=== PATIENT | male | born 1990 | race Caucasian/White ===

== ENCOUNTER 2020-12-30 09:35 | Outpatient (REF) | payer BC, SELFPAY ==
[2020-12-30 11:21] LABS: MANUAL DIFF FLAG NO
[2020-12-30 11:33] LABS: Basophils Percent Auto 0.6 % (0-2); Eosinophils Absolute Auto 0.2 X10*3/uL (0.0-0.4); Eosinophils Percent Auto 3.2 % (0-4); Hematocrit 44.8 % (42-52); Hemoglobin 15.1 g/dl (14.0-18.0); Imm Gran Abs Auto 0.05 X10*3/uL (0.00-0.03); Imm Gran Pct Auto 0.8 % (0.0-0.4); Lymphocytes Absolute Auto 2.3 X10*3/uL (1.2-4.9); Lymphocytes Percent Auto 34.9 % (20-40); Mean Corpuscular HGB Conc 33.7 g/dl (31.0-36.0); Mean Corpuscular Hemoglobin 28.4 pg (27.0-33.0); Mean Corpuscular Volume 84.4 fL (80-98); Mean Platelet Volume 9.7 fL (9.4-12.4); Monocytes Absolute Auto 0.6 X10*3/uL (0.1-1.2); Monocytes Percent Auto 8.3 % (2-11); Neutrophils Absolute Auto 3.4 X10*3/uL (2.0-8.3); Neutrophils Percent Auto 52.2 % (45-73); Platelet Count 277 X10*3/uL (160-400); Red Blood Count 5.31 X10*6/uL (4.60-5.80); Red Cell Distribution Width 12.1 % (11.0-16.0); White Blood Count 6.6 X10*3/uL (4.8-10.8)
[2020-12-30 12:24] LABS: Alanine Aminotransferase 45 U/L (0-40); Albumin Level 4.6 g/dL (3.5-5.0); Alkaline Phosphatase 58 U/L (39-117); Aspartate Amino Transferase 26 U/L (5-37); Bilirubin Total 0.3 mg/dL (0.0-1.0); Blood Urea Nitrogen 13 mg/dL (9-16); Calcium 9.2 mg/dL (8.4-10.2); Cholesterol 226 mg/dL; Estimated Glomerular Filt Rate > 60; Gamma Glutamyl Transpeptidase 117 U/L (11-51); Glucose Fasting 86 mg/dL (60-99); HDL Cholesterol 81 mg/dL; LDL Cholesterol Calculated 134 mg/dl; Triglycerides 56 mg/dL
[2020-12-30 13:17] LABS: Anion Gap 12 (12-20); Carbon Dioxide 28 mmol/L (22-29); Chloride 107 mmol/L (96-108); Sodium 143 mmol/L (135-145)
== END 2020-12-30 09:36 | disposition home or self-care (01) ==
LOC: HO.MANLDS 09:35
PROVIDERS: PCP Internal Medicine; Visit Provider Physician Assistant
DX: Z00.00 Encounter for general adult medical examination without abnormal findings (principal); Z13.6 Encounter for screening for cardiovascular disorders
CPT/HCPCS: 36415; 80053; 80061; 82977; 85025

== ENCOUNTER 2025-01-16 10:04 | Outpatient (REF) | payer BC, SELFPAY ==
[2025-01-16 13:20] LABS: MANUAL DIFF FLAG NO
[2025-01-16 13:27] LABS: Basophils Absolute Auto 0.1 X10*3/uL (0.0-0.2); Basophils Percent Auto 0.8 % (0-2); Eosinophils Absolute Auto 0.3 X10*3/uL (0.0-0.4); Eosinophils Percent Auto 3.9 % (0-4); Hematocrit 46.2 % (42.0-52.0); Hemoglobin 15.9 g/dl (14.0-18.0); Imm Gran Abs Auto 0.03 X10*3/uL (0.00-0.03); Imm Gran Pct Auto 0.5 % (0.0-0.4); Lymphocytes Percent Auto 31.8 % (20-40); Mean Corpuscular HGB Conc 34.4 g/dl (31.0-36.0); Mean Corpuscular Hemoglobin 28.5 pg (27.0-33.0); Mean Corpuscular Volume 82.9 fL (80.0-98.0); Mean Platelet Volume 10.4 fL (9.4-12.4); Monocytes Absolute Auto 0.6 X10*3/uL (0.1-1.2); Monocytes Percent Auto 9.3 % (2-11); Neutrophils Absolute Auto 3.4 x10*3/uL (2.0-8.3); Neutrophils Percent Auto 53.7 % (45-73); Platelet Count 270 X10*3/uL (160-400); Red Blood Count 5.57 X10*6/uL (4.60-5.80); Red Cell Distribution Width 12.2 % (11.0-16.0); White Blood Count 6.4 X10*3/uL (4.8-10.8)
[2025-01-16 13:40] LABS: Estimated Average Glucose 91 mg/dL; Hemoglobin A1C 119.3891 umol/L; Hemoglobin A1c % 4.8 % (<6.0)
[2025-01-16 14:28] LABS: Alanine Aminotransferase 33 U/L (0-40); Albumin Level 4.6 g/dL (3.5-5.0); Alkaline Phosphatase 61 U/L (39-117); Anion Gap 11 (12-20); Aspartate Amino Transferase 26 U/L (5-37); Bilirubin Total 0.7 mg/dL (0.0-1.0); Blood Urea Nitrogen 8 mg/dL (9-16); Calcium 9.7 mg/dL (8.4-10.2); Carbon Dioxide 27 mmol/L (22-29); Chloride 108 mmol/L (96-108); Cholesterol 193 mg/dL (<200); Estimated Glomerular Filt Rate > 60; Glucose Random 75 mg/dL (60-115); HDL Cholesterol 66 mg/dL (>40); LDL Cholesterol Calculated 112 mg/dL (<100); Potassium 3.7 mmol/L (3.3-5.1); Sodium 142 mmol/L (135-145); Total Protein 7.2 g/dL (6.5-8.0); Triglycerides 78 mg/dL (<150)
[2025-01-21 23:39] LABS: VITAMIN D (1,25 OH) D3 71 pg/mL; Vit D (1,25-Dihydroxy) Total 71 pg/mL (18-72); Vitamin D (1,25 OH) D2 <8 pg/mL
== END 2025-01-16 10:05 | disposition home or self-care (01) ==
LOC: HO.MANLDS 10:04
PROVIDERS: Visit Provider Physician Assistant
DX: Z00.00 Encounter for general adult medical examination without abnormal findings (principal); Z13.6 Encounter for screening for cardiovascular disorders; Z13.1 Encounter for screening for diabetes mellitus
CPT/HCPCS: 36415; 80053; 80061; 82652; 83036; 85025

== ENCOUNTER 2025-05-21 11:23 | Outpatient (REF) | payer BC, SELFPAY ==
--- OUTSIDE RECORDS SUMMARY | 2025-05-21 12:38 | XMS_ITS | Clinical Summary ---
Author Organization [facility] Address [address] [facility] [address] [place] [address] Phone Care Team Providers Care Solar Engineer Name Role Phone Jerman Maya DO Unavailable Pcp, Unknown Primary Care Provider Unavailabl e Allergies No known active allergies Medications bacillus coagulans-inulin 1 billion-250 cell-mg Cap Take 250 mg by mouth daily. Active fluticasone propionate (FLONASE) 50 mcg/actuation nasal spray 1 spray by Nasal route daily. Active Social History Tobacco Use Types Packs/Day Years Used Date Smoking Tobacco: Never Assessed Education Answer Date Recorded Are you interested in more education? Not on osbaldo e 02/18/2023 Are you concerned about learning? Not on file 02/18/2023 No 02/18/2023 No 02/18/2023 Digital Access Answer Date Recorded No 03/18/2023 No 03/18/2023 Reliable internet access at home? Not on file 03/18/2023 Device with a working camera? Not on file Sex and Gender Information Value Date Recorded Sex Assigned at Not on file Legal Sex Male 9:06 PM EDT Gender Identity Not on file Sexual Orientation Not on file Last Filed Vital Signs Vital Sign Reading Time Taken Comments Blood Pressure 136/78 07/15/2022 12:08 PM EDT Pulse 68 07/15/2022 9:41 AM EDT Temperature 36.5 C (97.7 F) 07/15/2022 12:08 PM EDT Respiratory Rate 14 07/15/2022 9:41 AM EDT Oxygen Saturation 96% 07/15/2022 12:08 PM EDT Inhaled Oxygen Concentration - - Weight - - Height - - Body Mass Index - - Plan of Treatment Health Maintenance Due Date Last Done Comments DEPRESSION SCREENING 2001 SMOKING Hx and SMOKELESS TOBACCO SCREENING 2002 HEPATITIS C SCREENING 2007 HIV ONE-TIME SCREENING (18-6 5 YEARS) 2007 Adult Td,Tdap Booster 08/04/2010 08/04/2000 COVID-19 VACCINE ( - 2023-2 5 season) 2024 LIPID PANEL 07/12/2028 07/12/2023, 12/30/2020 HIB VACCINES Completed 07/20/1990 HEPATITIS A VACCINES Aged Out No long er eligible based on patient's age to complete this topic MENINGOCOCCAL VACCINES (ACWY) Aged Out No longer eligible based on patient's age to complete this topic MENINGOCOCCAL VACCINES (B) Aged Out N o longer eligible based on patient's age to complete this topic PNEUMOCOCCAL VACCINES (0-49 years) Aged Out No longer eligible b ased on patient's age to complete this topic Medical Devices Not on file Insurance PPO EPO [facility] [place] [address] [place] [address] [place] [address] [place] [address] [address] [place] [address] PPO EPO [facility] PPO EPO [facility] PPO EPO [facility] PPO EPO [facility] PPO EPO Care Teams Solar Engineer Relationship Specialty Start Date End Date Pcp, Unknown PCP - General 05/21/22 Jerman Maya DO [address] [place] [address] [email or web address] Insurance Assigned Provider 01/28/24 Additional Source Comments The information contained in this document represents components of the legal health record. It is not the complete legal health record.[facility]
--- OUTSIDE RECORDS SUMMARY | 2025-05-21 12:38 | XMS_ITS | Data Portability ---
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 REVIEW OF PRIOR EXTERNAL NOTES/RESULTS, ORDERING OF TEST(S) CATEGORY 2. ASSESSMENT REQUIRING INDEPENDENT HISTORIAN(S) INCLUDE WHO THE HISTORIAN IS AND RELATION TO PT AND WHY PT IS UNABLE TO GIVE COMPLETE HISTORY ELEMENT 3: RISK (LOW) RISK OF COMPLICATIONS AND/OR MORBIDITY OR MORTALITY OF PATIENT MANAGEMENT PROVIDER MUST THOROUGHLY DOCUMENT ALL OF THE ELEMENTS COVERED [email or web address] Not available 09/26/2023 16:05:42 Plan of Treatment Reminders Order Date Submit Date Provider Last Modified By Organization Details Last Modified Time Details Appointments FOLLOW UP 15 2024 10:45A M MCAY العلي Not available Not available Not available ANNUAL EXAM 2025 09:30A MACY LEDEZMA Not available Not available Not available Lab CMP, serum or plasma 2024 025 [facility], [address] [place] [address], [place], [address], 01/17/2025 12:56:14 lipid panel, blood 2024 025 [facility], [address] [place] [address], [address], 01/17/2025 12:56:14 CBC w/ auto diff 2024 025 [facility], [address] [place] [address], [address], 01/16/2025 10:02:06 vitamin D, 25-hydrox y, total, serum 2024 025 [facility], [address] [place] [address], [address], 01/22/2025 12:38:08 hemoglobi n A1c, QN, blood 2024 025 [facility], [address] [place] [address], [address], 01/16/2025 10:02:06 CMP, serum or plasma 2023 024 [facility], [address] [place] [address], [place], [address], 01/13/2024 09:54:53 lipid panel, blood 2023 024 [facility], [address] [place] [address], [address], 01/13/2024 09:54:54 CBC w/ auto diff 2023 024 [facility], [address] [place] [address], [address], 01/13/2024 09:54:54 Referral physical therapist referral 2022 023 [facility], [facility] Breanna Fernandes, [place], [address], 10/03/2023 09:38:27 Procedures None recorded. Surgeries None recorded. Imaging US, scrotum 2023 024 [facility], [address] [place], [address], 01/02/2024 08:13:07 XR, cervical spine, 2 or 3 view 2022 023 [place], [address], 10/10/2023 08:44:46 Medication Orders bupropion HCl XL 150 mg 24 hr tablet, extended release 2024 025 [id number], [address] [place], [address], 05/01/2025 15:51:11 Patient TargetsNo targets recorded. Patient InstructionsNo instructions recorded. Reason for Referral Physical Therapist Referral for Cervico-occipital neuralgia Referring Physician: Jerman Maya, Internal Medicine, Encounter Date: 09/26/2023 Results Created Date Observation Date Name Description Value Unit Range Abnormal Flag Note LastModifiedBy Organization Detail LastModifiedTime 01/09/20 24 01/09/2024 US, yarelis No observ ation record ed. 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 Problems Name Problem SNOMED Code Status Onset Date Resolution Date Notes Provider Name and Address Organization Details Recorded Time Metabolic dysfuncti on-associ ated steatohep atitis 321660246 Active 2021 Jerman Maya, DO [address] [place] [address], [address], [place] [facility] 2 15:39:10 Right Achilles tendiniti s 699247066284 102 Active 2022 MACY العلي [address] [place] [address], [address], [facility] 3 13:41:53 Raynaud's phenomeno n 214127266 Active 2022 MACY العلي [address] [place], [address], [facility] 3 13:53:07 Temporal headache 22177804 Active 2022 Jerman Maya DO [address] [place], [address], [facility] 3 12:41:52 Scrotal mass 58301165 Active 2023 MACY العلي [address] [place], [address], [facility] 4 14:00:41 Panic attack 998607015 Active 2024 MACY العلي [address] [place] [address], [address], [facility] 5 15:45:52 Generaliz ed anxiety disorder 23900082 Active 2024 MACY العلي [address] [place] [address], [address], [facility] 5 15:46:46 Problem Notes None recorded. Medical Equipment None Reported. Allergies No known drug allergies Medications Name Sig Start Date Stop Date Status Note LastModified by Organization Details LastModified Time acetamino phen 325 mg tablet TAKE 2 TABLETS BY MOUTH 4 TIMES A DAY FOR 1 WEEK NEEDED FOR PAIN 01/12 completed Not Available Not Available Not Available benzonata te 200 mg capsule TAKE 1 CAPSULE 3 TIMES A DAY BY ORAL ROUTE NEEDED FOR 10 DAYS, FOR COUGH. 01/16 completed Not Available Not Available Not Available sumatript an 50 mg tablet TAKE 1 TABLET BY MOUTH NEEDED 01/12 completed Not Available Not Available Not Available Zyrtec 10 mg tablet Take 1 tablet every day by oral route. 01/01 completed Not Available Not Available Not Available lidocaine 5 % topical patch APPLY 1 PATCH DAILY 12 HOURS ON 12 HOURS OFF NEEDED FOR PAIN FOR 13 DAYS 01/12 completed Not Available Not Available Not Available ibuprofen 600 mg tablet TAKE 1 TABLET BY MOUTH FOUR TIMES A DAY FOR 1 WEEK NEEDED FOR PAIN 01/12 completed Not Available Not Available Not Available amoxicill in 875 mg-potass ium clavulana te 125 mg tablet TAKE 1 TABLET BY MOUTH EVERY 12 HOURS FOR 10 DAYS, FOR SINUS INFECTIO N. 01/16 completed Not Available Not Available Not Available neomycin 3.5 mg/g-poly myxin B 10,000 unit/g-de xameth 0.1 % eye oint APPLY TO THE RIGHT UPPER EYELID 2 TIMES DAILY 01/05 completed Not Available Not Available Not Available bupropion HCl XL 150 mg 24 hr tablet, extended release TAKE 1 TABLET BY MOUTH EVERY DAY DIRECTED active Not Available Not Available No t Available multivita min daily; OTC 01/12 completed Not Available Not Available Not Available Zyrtec 10 mg capsule Take 1 capsule every day by oral route. 01/05 completed was causing issues with liver Not Available Not Available Not Available Flonase Allergy Relief 50 mcg/actua tion nasal spray,nessa pension Ideal 1 spray every day by intranas al route. active PRN Not Available Not Available No t Available Readi-Cat 2 2 % (w/v) oral suspensio n 2 BOTTLES PER RADIOLOG Y 1 EVENING BEFORE [address] 01/01 completed Not Available Not Available Not Available Flucelvax Quad 60 mcg (15 mcg x 4)/0.5 mL intramusc ular susp 12/30 completed Not Available Not Available Not Available Flucelvax Quad (PF) 60 mcg (15 mcg x 4)/0.5 mL IM syringe PHARMACY ADMINIST ERED 12/30 completed Not Available Not Available Not Available Vitals Date Recorded Body height Body mass index (BMI) Body weight Heart rate Oxygen saturation Oxygen saturation in Arterial blood by Pulse oximetry Systolic And Diastolic Provider Name and Address Organization Details Last Updated DateTime 4 168.91 cm 32.6 kg/m2 26582.4 4 g 89 /min 99 % 99 % 122/74 mm[Hg] [facility] 4 13:47:08 Date Recorded Body height Body mass index (BMI) Body weight Heart rate Oxygen saturation Oxygen saturation in Arterial blood by Pulse oximetry Systolic And Diastolic Provider Name and Address Organization Details Last Updated DateTime 4 168.91 cm 33.1 kg/m2 37214.2 9 g 88 /min 98 % 98 % 122/78 mm[Hg] MACY العلي [address] [place], [address] [facility] 4 09:43:21 Date Recorded Body height Body mass index (BMI) Body weight Heart rate Oxygen saturation Oxygen saturation in Arterial blood by Pulse oximetry Systolic And Diastolic Provider Name and Address Organization Details Last Updated DateTime 5 167.64 cm 33.6 kg/m2 07151.2 1 g 88 /min 98 % 98 % 120/68 mm[Hg] Akila Lugo [facility] 5 09:32:46 Date Recorded Body height Provider Name an d Address Organization Details Last Updated DateTime 05/01/2025 167.64 cm Rose Davenport [facility] 05/01/2025 14:54:44 Date Recorded Body height Body mass index (BMI) Body weight Heart rate Oxygen saturation Oxygen saturation in Arterial blood by Pulse oximetry Systolic And Diastolic Provider Name and Address Organization Details Last Updated DateTime 3 168.91 cm 32.6 kg/m2 03183.4 4 g 70 /min 98 % 98 % 118/70 mm[Hg] Akila Lugo [facility] 3 15:47:02 Social History Question Answer Notes LastModified by [employer] Details LastModified Time Tobacco Smoking Status Never Smoker Not Available [facility] 08/26/2020 03:36:23 What Was The Date Of Your Most Recent Tobacco Screening? 05/01/2025 [email or web address] Information not available 05/01/2025 Sex: Unknown Functional Status Question Answer Note LastModified by [employer] Details LastModified Time Do you or have you ever used any other forms of tobacco or nicotine? No [email or web address] Information not available 12/30/2023 Do you or have you ever used e-cigarettes or vape? Never used electronic cigarettes Information not available 01/05/2023 Mental Status None recorded. Family History Relationship Description Onset Age of this Age Resolved Age Notes LastModified by Organization Details LastModified Time Father Malignant neoplasm of skin [email or web address] Not available 2024 09:26:17 Father Hypertensive disorder [email or web address] Not available 2018 14:36:32 Maternal Grandfather Myocardial infarction 59 [email or web address] Not available 01/31 11:55:40 Medical History Condition Response Coronary Artery Disease N Gout N Blood Diseases N Kidney Stones N Hyperthyroidism N Blood Transfusion N Breast Cancer N Lung Disease N Depression N COPD N Anxiety Disorder Y Cancer N Stroke N Bladder or Kidney Problems N High Cholesterol N Liver Disease Kidney Disease N Allergies/Hayfever Y Heart Problems N Thyroid Problems N GI Problems N Anemia N Constipation Y Diabetes N Seizures/Epilepsy N Congestive Heart Failure (CHF) N Diverticulitis N Asthma N Reflux/GERD Y Hepatitis N Pulmonary Embolism N Hypertension N Chronic Ear Infections N Chicken Pox Y Thrombophilias N Immunizations Vaccine Type Date Status Note Provider Nam e and Address Organization Details Recorded Time Influenza, split virus, quadrivalent, preservative 1 completed Kathrine desir [facility] 09/26/2023 15:43:08 Td (adult) 0 completed Yeni desir [facility] 01/30/2019 14:53:43 DTaP 4 completed Yeni desir [facility] 01/30/2019 14:53:54 DTP 9 darnell desir [facility] 01/30/2019 14:54:08 DTP 9 darnell desir [facility] 01/30/2019 14:54:27 DTP 0 darnell desir [facility] 01/30/2019 14:54:37 DTP 1 darnell desir [facility] 01/30/2019 14:54:49 Hep B, adolescent or pediatric 0 completed Kathrine desir [facility] 09/26/2023 15:43:08 Hep B, adolescent or pediatric 1 completed Kathrine desir [facility] 09/26/2023 15:43:08 Hep B, adolescent or pediatric 0 completed Kathrine desir [facility] 09/26/2023 15:43:08 Hib (HbOC) 0 completed Kathrine desir, [facility] 09/26/2023 15:43:08 MMR 0 completed Yeni desir, [facility] 01/30/2019 14:55:57 MMR 0 completed Yeni desir, [facility] 01/30/2019 14:56:13 OPV, trivalent 9 completed Kathrine desir, [facility] 09/26/2023 15:43:08 OPV, trivalent 9 completed Kathrine desir, [facility] 09/26/2023 15:43:08 [facility]PV, trivalent [facility] 15:43:08 OPV, trivalent 4 [facility] 15:43:08 Influenza, split virus, quadrivalent, preservative 8 [facility] 15:43:08 Influenza, split virus, quadrivalent, preservative 0 [facility] 15:43:08 Past Encounters Encounter ID Performer Location Encounter Start Date Encounter Closed Date Diagnosis/Indication Diagnosis SNOMED-CT Code Diagnosis ICD10 Code Diagnosis Note [id number] Jerman Maya [facility] [address] [place] [address] 01/31/2019 11:38:26 01/31/2019 13:32:54 Adult health examination 012159278 Z00.00 Atypical chest pain 1025 28916 R07.89 NSR [id number] Jerman Maya [facility] Internal [facility] [address] [place] [address] 12/30/2020 08:56:39 12/30/2020 10:26:04 Active or passive immunization 816948834 Z23 due for Tdap, patient informed Adult [facility] th examination 131961347 Z00.00 BP is fine, patient will work on diet and exercise to bring it down with weight Screening for cardiovascular system disease 019170710 Z13.6 [place] bw [id number] Jerman Maya [facility] Medicine [address] [facility] [address] [address] 03/11/2021 11:44:40 03/11/2021 15:40:09 Right upper quadrant pain 004260997 R10.11 will fu with US, family history of gallbladde r stones and removal [id number] Jreman Maya [facility] Medicine [address] [facility],[place] [address] 01/01/2022 08:58:57 01/04/2022 16:23:17 Active or passive immunization 718782349 Z23 due for Tdap, patient informed Adult [facility] examination 578519111 Z00.00 BP is excellent todayalrebrenda seals had blood work done [facility] Cyst of skin 012669704 L 72.8 will fu with derm referral [id number] Jerman Maya [facility] Medicine [address] [facility],[place] [address] 01/15/2022 09:39:32 01/15/2022 15:08:47 Testicular mass 93678956 N50.89 [id number] Jerman Maya [facility] Medicine [address] [facility],[place] [address] 02/23/2022 14:47:52 02/24/2022 09:08:07 Metabolic dysfunction-associate d steatohepatitis 556019289 K75.81 here for rechk and i agree that he needs to pursue the fatty liverdiagn osis [id number] Jerman Maya [facility] Medicine [address] [facility] [address] [address] 01/05/2023 13:26:43 01/07/2023 11:25:00 Active or passive immunization 247436192 Z23 due for Tdap, patient informed Adult [facility] th examination 691613110 Z00.00 BP is excellent today Right Luisi llgiuliano tendinitis 9123341533 46793 M76.61 given exercises to try Raynaud's phenomenon 266 132561 I73.00 stable [id number] Jerman Maya [facility] Medicine [address] [facility] [address] [address] 09/26/2023 15:41:40 09/26/2023 16:11:24 Cervico-occipital neuralgia 18132537 M54.81 [id number] Jerman Maya [facility] [address] [facility] [address] [address] 12/30/2023 13:43:54 12/30/2023 16:39:30 Scrotal mass 56224759 N50.89 will set up with scrotum [id number] Jerman Maya [facility] [address] [facility] [address] [address] 01/13/2024 09:30:57 01/13/2024 12:04:09 Adult health examination 691116231 Z00.00 BP is excellent today [id number] Jerman Maya [facility] [address] [facility] [address] [address] 01/16/2025 09:25:02 01/16/2025 11:37:45 Adult health examination 958674840 Z00.00 BP is excellent today [id number] Jerman Maya [facility] [address] [facility] [address] [address] 05/01/2025 14:36:34 05/01/2025 16:19:45 Depression screening 320955486 Z13.31 negative Panic attack 631268623 F 41.0 Generalize d anxiety disorder 08821159 F41.1 Health Concerns Section Related Observation LastModified by Organization Detai ls LastModified Time None Recorded Concern Status LastModified by Organization Details LastModified Time None Recorded Advance Directives Directive None Recorded Payers Insurance Date Sequence Insurance Name Policy Number Policy Miranda Covered Member ID Miranda Member ID Guarantor Name 05/18/2025 1 [facility] [id number] Uriel Crawford [id number] Uriel Crawford
[2025-05-21 13:52] LABS: Alanine Aminotransferase 52 U/L (0-40); Albumin Level 4.8 g/dL (3.5-5.0); Alkaline Phosphatase 93 U/L (39-117); Anion Gap 13 (12-20); Aspartate Amino Transferase 37 U/L (5-37); Blood Urea Nitrogen 13 mg/dL (9-16); Calcium 9.9 mg/dL (8.4-10.2); Carbon Dioxide 27 mmol/L (22-29); Chloride 106 mmol/L (96-108); Estimated Glomerular Filt Rate > 60; Potassium 4.2 mmol/L (3.3-5.1); Sodium 142 mmol/L (135-145); Total Protein 7.4 g/dL (6.5-8.0)
== END 2025-05-21 11:24 | disposition home or self-care (01) ==
LOC: HO.MANLDS 11:23
PROVIDERS: Visit Provider Physician Assistant
DX: F41.1 Generalized anxiety disorder (principal)
CPT/HCPCS: 36415; 80053

== ENCOUNTER 2025-06-04 11:04 | Outpatient (REF) | payer BC, SELFPAY ==
--- OUTSIDE RECORDS SUMMARY | 2025-06-04 12:12 | XMS_ITS | Clinical Summary ---
Author Organization [facility] Address [address] [facility] [address] [place] [address] Phone Care Team Providers Care Leather Tooler Name Role Phone Jerman Maya DO Unavailable [...] Devices Not on file Insurance PPO EPO [facility] PPO [place] [address] [address] [place] [address] [place] [place] [address] PPO EPO [facility] PPO EPO [facility] PPO EPO [facility] PPO EPO [facility] PPO EPO Care Teams Leather Tooler Relationship Specialty Start Date End Date Pcp, Unknown PCP - General 05/21/22 Jerman Maya DO [address] [place] [address] [email or web address] Insurance Assigned Provider 01/28/24 Additional Source Comments The information contained in this document represents components of the legal health record. It is not the complete legal health record.[facility]
[2025-06-04 14:05] LABS: Alanine Aminotransferase 56 U/L (0-40); Albumin Level 4.9 g/dL (3.5-5.0); Alkaline Phosphatase 98 U/L (39-117); Anion Gap 13 (12-20); Aspartate Amino Transferase 42 U/L (5-37); Blood Urea Nitrogen 15 mg/dL (9-16); Calcium 9.7 mg/dL (8.4-10.2); Carbon Dioxide 27 mmol/L (22-29); Chloride 106 mmol/L (96-108); Estimated Glomerular Filt Rate > 60; Potassium 4.0 mmol/L (3.3-5.1); Sodium 142 mmol/L (135-145); Total Protein 7.4 g/dL (6.5-8.0)
== END 2025-06-04 11:05 | disposition home or self-care (01) ==
LOC: HO.MANLDS 11:04
PROVIDERS: Visit Provider Physician Assistant
DX: F41.1 Generalized anxiety disorder (principal)
CPT/HCPCS: 36415; 80053